=== PATIENT | male | born 1955 | race Caucasian/White ===

== ENCOUNTER 2019-05-22 13:24 | Emergency (ER) | payer OTHER ==
[~2019-05-22 13:24] MED LIST: CALCIUM CHLORIDE 100 MG/ML 10 ML SYRINGE ONE; EPINEPHrine 10 ML SYRINGE (0.1 MG/ML) ONE; SODIUM BICARB 8.4% 50 ML SYR (1 MEQ/ML) ONE
[2019-05-22 13:49] LABS: Glucose,Whole Blood 153 mg/dL (75-99)
--- NOTE | 2019-05-22 14:02 | ED ---
General Adult HPI - General Chief complaint: Cardiac Arrest/CPR Stated complaint: Cardiac Arrest Time Seen by Provider: 05/22/19 13:57 Source: EMS Mode of arrival: EMS - History of Present Illness Initial comments: Dictation was produced using [employer] dictation software. please excuse any grammatical, word or spelling errors. Chief Complaint: 63-year-old male presents after cardiac arrest. History of Present Illness: 63-year-old male is brought in by EMS after cardiac arrest. Patient suffered a witnessed arrest by bystanders. Allegedly patient was down for approximately 1 minute. EMS arrived on scene and started CPR immediately. Patient was given 1 round of epi and defibrillation. Shayan device was used. Unable to obtain ROS PHYSICAL EXAM: General Impression: Abdominal HEENT: Normocephalic atraumatic Cardiovascular: Asystolic Chest: Bilateral breath sounds Abdomen: Nondistended Musculoskeletal: Cool clammy extremities, no pulses Neurological: Face and dilated pupils Skin: Ashen ED course: 63-year-old male presents after cardiac arrest. Patient was brought to resuscitation bay immediately upon arrival. Upon arrival patient had organized cardiac rhythm however he was pulseless. Interpretation of pulseless electrical activity. Patient underwent CPR for several minutes. He did have 2 episodes of ventricular fibrillation that defibrillation was used using 200 J biphasic. Patient was given calcium, bicarbonate. He is given 3 more rounds of epinephrine. Arrest occurred at approximately 1:08 PM. Patient underwent co ntinuous cardiopulmonary resuscitation. Bony care bedside ultrasound was performed showing nonlife sustainable cardiac activity. Patient then went asystole on our last pulse and rhythm check. Time of was announced at 1:39 PM. Review of Systems ROS Statement: Those systems with pertinent positive or pertinent negative responses have been documented in the HPI. ROS Other: All systems not noted in ROS Statement are negative. Past Medical History Past Medical History: Unable to Obtain Additional Past Medical History / Comment(s): unknown Past Surgical History: Unable to Obtain Medical Decision Making - Lab Data Lab Results 05/22/19 Range/Units 13:29 POC Glucose (mg/dL) 153 H (75-99) mg/dL POC Glu Anode Worker ID Newton Maciel Disposition Clinical Impression: Cardiac arrest Disposition: Condition: Undetermined Referrals: None,Stated [Primary Care Provider] - 1-2 days Time of Disposition: 14:02 Preliminary Cause of : cardiac arrest
== END 2019-05-22 19:12 | disposition expired ==
LOC: EC 13:24
DX: I46.9 Cardiac arrest, cause unspecified (principal)
CPT/HCPCS: 36415; 99285; 92950; J0171